=== PATIENT | female | born 1985 | race African-American/Black ===

== ENCOUNTER 2021-09-10 14:13 | Emergency (ER) | payer OTHER ==
[~2021-09-10] VITALS: Ht 170.2 cm; Wt 104.3 kg
--- NOTE | 2021-09-10 14:30 | NUR ---
CARINA REYES C/O LEFT AND RIGHT ANKLE PAIN P/S 01/05 "GOT HURT WHILE BEING PLACED IN THE CELL" WILL CONTINUE TO MONITOR THE PATIENT.
--- NOTE | 2021-09-10 15:27 | NUR ---
Patient discharged to [facility] in stable condition. Written and verbal after care instructions given. Patient verbalizes understanding of instruction.
[2021-09-10 15:31] VITALS: BP 119/70
== END 2021-09-10 15:31 ==
LOC: ER 14:18
DX: M25.572 Pain in left ankle and joints of left foot (principal)